=== PATIENT | female | born 1990 | race American Indian/Alaskan Native ===

== ENCOUNTER 2018-07-23 08:17 | Emergency (ER) | payer MEDICAID ==
[2018-07-23 08:28] VITALS: BP 115/77
--- NOTE | 2018-07-23 09:24 | Emergency Department Report ---
ED Abdominal Pain HPI - General Chief Complaint: Medical Clearance Stated Complaint: STOMACH PAIN Time Seen by Provider: 07/23/18 08:46 Source: patient Mode of arrival: Ambulatory Limitations: No Limitations - History of Present Illness Initial Comments: 27-year-old female with a history of emergent appendectomy [address] [facility] presents to the hospital complaining of residual intermittent pinching pain to the right lower quadrant for the last 2 weeks. No aggravating or alleviating factors supported. Pain is reported 7/10 in intensity in triage. Pain is described as more as an irritation. Yesterday patient felt a buldge to the right lower quadrant that she was able to push back in. Positive nausea reported. No fever, no vomiting, no dysuria, or hematuria. Patient had 3 negative tests at home. - Related Data Previous Rx's Medication Instructions Recorded Last Taken Type Ibuprofen [Motrin] 600 mg PO Q8H PRN #30 tablet 07/23/18 Unknown Rx Nitrofurantoin [place]/M-Cryst 100 mg PO Q12HR #10 capsule 07/23/18 Unknown Rx [Macrobid CAP] Ondansetron [Zofran Odt] 4 mg PO Q8HR PRN #20 tab.rapdis 07/23/18 Unknown Rx Allergies Allergy/AdvReac Type Severity Reaction Status Date / Time No Known Allergies Allergy Unverified 07/23/18 08:23 ED Review of Systems ROS: Stated complaint: STOMACH PAIN Other details as noted in HPI Comment: All other systems reviewed and negative ED Past Medical Hx - Past Medical History Previous Medical History?: No - Surgical History Hx Appendectomy: Yes - Social History Smoking Status: Never Smoker Substance Use Type: Alcohol - Medications Home Medications: Home Medications Medication Instructions Recorded Confirmed Last Taken Type Ibuprofen [Motrin] 600 mg PO Q8H PRN #30 tablet 07/23/18 Unknown Rx Nitrofurantoin [place]/M-Cryst 100 mg PO Q12HR #10 capsule 07/23/18 Unknown Rx [Macrobid CAP] Ondansetron [Zofran Odt] 4 mg PO Q8HR PRN #20 tab.rapdis 07/23/18 Unknown Rx ED Physical Exam - General Limitations: No Limitations - Other Other exam information: General: No limitations, patient is alert in no acute distress Head exam: Atraumatic, normocephalic Eyes exam: Normal appearance, pupils equal reactive to light, extraocular movements intact ENT: Moist mucous membrane, normal oropharynx Neck exam: Normal inspection, full range of motion, no meningismus nontender Respiratory exam: Clear to auscultation bilateral, no wheezes, rales, crackles Cardiovascular: Normal rate and rhythm, normal heart sounds Abdomen: Soft, nondistended, right lower quadrant scar from open appendectomy. No bulges or palpable hernia. No palpable fascial defect. No significant tenderness on exam Extremity: Full range of motion normal inspection no deformity Back: Normal Inspection, full range of motion, no tenderness Neurologic: Alert, oriented x3, cranial nerves intact, no motor or sensory deficit Psychiatric: normal affect, normal mood Skin: Warm, dry, intact ED Course Vital Signs 07/23/18 08:23 Temperature 97.6 F Pulse Rate 86 Respiratory 18 Rate Blood Pressure 115/77 O2 Sat by Pulse 99 Oximetry ED Medical Decision Making - Lab Data Lab Results 07/23/18 Range/Units Unknown Urine Color Yellow (Yellow) Urine Turbidity Slightly-cloudy (Clear) Urine pH 7.0 (5.0-7.0) Ur Specific [place] 1.017 (1.003-1.030) Urine Protein <15 mg/dl (Negative) mg/dL Urine Glucose (UA) Neg (Negative) mg/dL Urine Ketones Neg (Negative) mg/dL Urine Blood Neg (Negative) Urine Nitrite Pos (Negative) Urine Bilirubin Neg (Negative) Urine Urobilinogen < 2.0 (<2.0) mg/dL Ur Leukocyte Esterase Mod (Negative) Urine WBC (Auto) 29.0 H (0.0-6.0) /HPF Urine RBC (Auto) 6.0 (0.0-6.0) /HPF U Epithel Cells (Auto) 3.0 (0-13.0) /HPF Urine Bacteria (Auto) 2+ (Negative) /HPF Amorphous Crystals 1+ Urine Mucus 2+ /HPF Urine HCG, Qual Negative (Negative) - Medical Decision Making Right lower quadrant pain. No signs of hernia nontender on exam UA positive for infection negative Patient in no acute distress Macrobid provided Discharged with meds and follow - Differential Diagnosis postop pain, ovarian cyst, , ectopic , UTI, hernia Critical Care Time: No Critical care attestation.: If time is entered above; I have spent that time in minutes in the direct care of this critically ill patient, excluding procedure time. ED Disposition Clinical Impression: UTI (urinary tract infection) Disposition: - TO HOME OR SELFCARE Is pt being admited?: No Does the pt Need Aspirin: No Condition: Stable Instructions: Urinary Tract Infection in Women (ED) Additional Instructions: Take the medication as prescribed. Follow up with your doctor with a doctor provided. Return if symptoms worsen as indicated by your discharge instructions. Prescriptions: Ibuprofen [Motrin] 600 mg PO Q8H PRN #30 tablet PRN Reason: Pain Nitrofurantoin [place]ucks/M-Cryst [Macrobid CAP] 100 mg PO Q12HR #10 capsule Ondansetron [Zofran Odt] 4 mg PO Q8HR PRN #20 tab.rapdis PRN Reason: Nausea And Vomiting Referrals: [facility] [Provider Group] - 3-5 Days (Primary care clinic) FABIAN COLÓN MD [Staff Physician] - 3-5 Days (Primary care doctor) KALIE KISER MD [Primary Care Provider] - 3-5 Days Time of Disposition: 09:58
[2018-07-23 09:47] LABS: Amorphous Crystals,Urine 1+; Bacteria,Urine 2+ /HPF (Negative); Bilirubin,Urine NEG (Negative); Blood,Urine NEG (Negative); Color,Urine Yellow (Yellow); HCG Qualitative,Urine Negative (Negative); Mucus,Urine 2+ /HPF; Protein,Urine <15 mg/dL mg/dL (Negative); Urobilinogen,Urine < 2.0 mg/dL (<2.0)
[2018-07-23] MEDS ORDERED: MACROBID PO ONE (09:56)
== END 2018-07-23 10:11 | disposition home or self-care (01) ==
LOC: ED 08:17
DX: N39.0 Urinary tract infection, site not specified (principal); Z90.49 Acquired absence of other specified parts of digestive tract
CPT/HCPCS: 81001; 81025; 99284